=== PATIENT | male | born 1955 | race Caucasian/White ===

== ENCOUNTER 2023-02-25 00:46 | Emergency (ER) | payer SELFPAY ==
[~2023-02-25] VITALS: Ht 170.2 cm; Wt 86.0 kg
[2023-02-25 00:49] VITALS: BP 150/90
== END 2023-02-25 09:05 | disposition left against medical advice (07) ==
LOC: ER 00:46
DX: M79.89 Other specified soft tissue disorders (principal); Z53.21 Procedure and treatment not carried out due to patient leaving prior to being seen by health care provider
CPT/HCPCS: 99281

== ENCOUNTER 2023-03-04 08:47 | Emergency (ER) | payer OTHER ==
[~2023-03-04] VITALS: Ht 177.8 cm; Wt 72.0 kg
[2023-03-04 09:39] LABS: BASOPHILS % 0.6 % (0.0-2.0); EOSINOPHILS % 1.6 % (0.0-5.0); HEMOGLOBIN. 13.1 g/dL (14.0-18.0); LYMPHOCYTES % 9.2 % (20.0-50.0); MEAN CORPUSCULAR HEMOGLOBIN 31.5 pg (28.0-32.0); MEAN CORPUSCULAR VOLUME 93.7 fL (80.0-94.0); MEAN PLATELET VOLUME 8.6 fl (7.4-10.4); MONOCYTES % 11.4 % (2.0-8.0); NEUTROPHILS % 77.2 % (40.0-76.0); PLATELET 408 x1000/uL (130-400); RED BLOOD CELL COUNT 4.17 mill/uL (4.7-6.1); RED CELL DISTRIBUTION WIDTH 13.8 % (11.6-14.6)
[2023-03-04 09:46] LABS: CHLORIDE 102 mEq/L (98-107)
[2023-03-04 09:52] LABS: INR 1.1; PROTHROMBIN TIME 11.4 sec (9.6-11.0)
[2023-03-04 11:15] LABS: CLARITY URINE CLEAR (CLEAR); COLOR URINE YELLOW (YELLOW); KETONES URINE NEGATIVE (NEGATIVE); LEUKOCYTE ESTERASE URINE NEGATIVE (NEGATIVE); NITRITE URINE NEGATIVE (NEGATIVE); OCCULT BLOOD URINE NEGATIVE (NEGATIVE); PROTEIN URINE NEGATIVE (NEGATIVE); SPECIFIC GRAVITY URINE 1.015 (1.005-1.030)
[2023-03-04] MEDS ORDERED: CLIN150C2 MT (12:06)
[2023-03-04] MEDS ORDERED: IBUP-2028 MT (12:06)
[2023-03-04 12:07] VITALS: BP 133/61
== END 2023-03-04 12:21 | disposition home or self-care (01) ==
LOC: ER 08:47
DX: S40.222A Blister (nonthermal) of left shoulder, initial encounter (principal); I10 Essential (primary) hypertension; X58.XXXA Exposure to other specified factors, initial encounter; Y93.89 Activity, other specified; Y92.89 Other specified places as the place of occurrence of the external cause; Y99.8 Other external cause status
CPT/HCPCS: 36415; 73030; 80053; 81003; 85025; 99284